=== PATIENT | female | born 1940 | race Caucasian/White ===

== ENCOUNTER 2018-01-21 10:47 | Outpatient (CLI) | payer MEDICARE, MEDICAID | END 2018-01-21 10:48 | disposition home or self-care (01) | LOC: BICMRI 10:47 | PROVIDERS: ATTEND Family Medicine | DX: R41.3 Other amnesia (principal); G93.89 Other specified disorders of brain | CPT/HCPCS: 70551 ==

== ENCOUNTER 2018-07-22 11:35 | Outpatient (CLI) | payer MEDICARE, MEDICAID ==
--- NOTE | 2018-07-22 14:12 | RAD ---
LEFT RIB SERIES: Comparison: None. History: Left rib pain. Multiple left rib fractures. FINDINGS: Multiple views of the left ribs shows no evidence of displaced left rib fracture. No pleural thickeni ng of pneumothorax are seen. IMPRESSION: No evidence of displaced left rib fracture. POS: [facility]
--- NOTE | 2018-07-22 14:15 | RAD ---
THREE VIEWS OF THE THORACIC SPINE: Comparison: None. History: Closed compression fracture of the thoracic vertebrae. Fall, causing a knot on back. FINDINGS: Three views of the thoracic spine shows normal height and alignment of vertebral bodies without fract ure or subluxation. The intervertebral discs are narrowed and small osteophytes are seen throughout t he thoracic spine. Evaluation of the upper thoracic vertebral bodies is limited secondary to overlyin g structures. IMPRESSION: No evidence of acute osseous abnormality of the thoracic spine. POS: [facility]
== END 2018-07-22 11:36 | disposition home or self-care (01) ==
LOC: BICRAD 11:35
PROVIDERS: ATTEND Family Medicine
DX: S22.42XA Multiple fractures of ribs, left side, initial encounter for closed fracture (principal); S22.000S Wedge compression fracture of unspecified thoracic vertebra, sequela
CPT/HCPCS: 72072

== ENCOUNTER 2019-06-13 10:50 | Outpatient (CLI) | payer MEDICARE, MEDICAID | END 2019-06-13 10:51 | disposition home or self-care (01) | LOC: EKG 10:50 | PROVIDERS: ATTEND Internal Medicine Hematology & Oncology | DX: Z51.11 Encounter for antineoplastic chemotherapy (principal); C92.11 Chronic myeloid leukemia, BCR/ABL-positive, in remission; D50.8 Other iron deficiency anemias; D72.829 Elevated white blood cell count, unspecified | CPT/HCPCS: 36415; 81001; 82607; 84436; 84443; 93005; 93010 ==

== ENCOUNTER 2019-08-04 09:22 | Outpatient (CLI) | payer MEDICARE, MEDICAID ==
[2019-08-04] MEDS ORDERED: Iopamidol 370 76% 100 ML VIAL ONE (09:25)
--- NOTE | 2019-08-04 11:33 | CT ---
CHEST CT WITH CONTRAST ABDOMEN CT WITH CONTRAST PELVIC CT WITH CONTRAST: HISTORY: Lymphadenopathy. Patient has been diagnosed with lymphoma. Patient has lost 5 pounds. Correlation: None. COMPARISON: None. FINDINGS: Chest CT: Mediastinum: Enlarged precarinal lymph node measuring 0.9 x 1.4 cm. Additional upper normal prevascul ar and paratracheal lymph nodes are noted. No significant subcarinal lymphadenopathy. No significant hilar lymphadenopathy. Aorta: Normal caliber. Atherosclerosis. No periaortic fat stranding. Heart: Normal heart size. No significant pericardial fluid. Coronary arteries: There is coronary calcification. Trachea and central bronchi: Patent. Pleural spaces: No pleural effusion. Right lung: Patchy groundglass opacities. Subtle 0.8 x 0.6 cm groundglass nodule upper lobe. 0.3 cm n odule in the lateral left upper lobe. 0.4 cm solid nodule in the superior segment of the right lower lobe. Left lung:Patchy groundglass opacities. No suspicious masses or nodules. Pneumothorax: None. Abdomen CT: Gallbladder: Cholelithiasis without evidence of cholecystitis. Portal vein: Patent. Liver: Appropriate enhancement. Spleen: Appropriate enhancement. Pancreas: Appropriate enhancement. Adrenal glands: Appropriate enhancement. Lymphadenopathy: No gastrohepatic, retrocrural or periportal lymphadenopathy. Kidneys: Symmetric enhancement. No obstructive uropathy. Nonobstructing calculus in the mid left vania l cortex measuring 1 to 2 mm. Exophytic cyst emanating from the mid right renal cortex measures 5.1 x 5.7 cm and has an attenuation coefficient of 14 Hounsfield units. A small cyst imaging from the low er pole of the left kidney measures 1.6 x 1.4 cm and has an attenuation coefficient of 12 Hounsfield units. Mesentery: No mass, lymphadenopathy, free air or free fluid. Alimentary canal: Limited evaluation due to the lack of oral contrast administration. No evidence of mucosal thickening or bowel obstruction. Unremarkable ileocecal junction. Normal caliber appendix. Scattered fecal material in a nondistended, nondilated colon. Diverticulosis. No evidence of divertic ulitis. Pelvis CT: Multiple mixed attenuation masses and calcifications in the uterus suggesting multifocal uterine leio myomas, incompletely evaluated. No pelvic mass, lymphadenopathy, free air or free fluid. Osseous structures: No lytic or blastic lesions. IMPRESSION: 1. Prominent precarinal lymph node. No additional mediastinal lymphadenopathy. 2. No significant lymphadenopathy in the abdomen or pelvis. 3. Bilateral renal cysts. 4. Cholelithiasis without evidence of cholecystitis. 5. Uterine leiomyoma with multiple mixed attenuation masses. Pelvic ultrasound is recommended. 6. If there is concern for lymphoma, consider PET imaging to evaluate for hypermetabolic lymph nodes. Transcribed Date/Time: 08/04/2019 11:49 AM
== END 2019-08-04 09:23 | disposition home or self-care (01) ==
LOC: CT 09:22
PROVIDERS: ATTEND Family Medicine
DX: C95.00 Acute leukemia of unspecified cell type not having achieved remission (principal); R59.0 Localized enlarged lymph nodes; N28.1 Cyst of kidney, acquired; K80.20 Calculus of gallbladder without cholecystitis without obstruction; D25.9 Leiomyoma of uterus, unspecified
CPT/HCPCS: 71260; 74177; 82565; Q9967

== ENCOUNTER 2019-08-07 14:16 | Emergency (ER) | payer MEDICARE, MEDICAID ==
[2019-08-07 15:00] LABS: Hemoglobin 12.5 g/dL (12.0-16.0); Mean Corpuscular HGB CONC 30.9 g/dL (32.0-36.0); Mean Corpuscular Hemoglobin 24.9 pg (27.0-31.0); Mean Corpuscular Volume 80.6 fL (78.0-98.0); Mean Platelet Volume 11.2 fL (7.4-10.4); Platelet Count 351 thou/uL (130-400); RBC Distribution Width 23.7 % (11.5-14.5); Red Blood Cell (RBC) Count 5.01 mill/uL (4.20-5.40); White Blood Cell (WBC) Count 22.7 thou/uL (4.8-10.8)
[2019-08-07 15:21] LABS: ALT (SGPT) 20 U/L (8-55); AST (SGOT) 24 U/L (5-34); Albumin 3.8 g/dL (3.4-4.8); Alkaline Phosphatase 144 U/L (40-110); Anion Gap 12 mmol/L (10-20); BUN (Urea Nitrogen) 17 mg/dL (9.8-20.1); CK (CPK) 33 U/L (29-168); Calc. Creatinine Clearance 0 mL/min (70-130); Calcium 8.9 mg/dL (7.8-10.44); Carbon Dioxide 29 mmol/L (23-31); Chloride 105 mmol/L (98-107); Estimated GFR-MDRD 64; Globulin 2.5 g/dL (2.4-3.5); Glucose 85 mg/dL (83-110); Potassium 3.9 mmol/L (3.5-5.1); Protein, Total 6.3 g/dL (6.0-8.3); Sodium 142 mmol/L (136-145)
[2019-08-07 15:25] LABS: Anisocytosis MODERATE=16-30 cells (100X) (0-5/hpf); Band 6 % (5-11); Burr Cells SLIGHT = 2-5 cells (100X) (0-1/hpf); Elliptocytes SLIGHT = 2-5 cells (100X) (0-1/hpf); Eosinophils 2 % (0-10); Hypochromia SLIGHT = 6-15 cells (100X) (0-5/hpf); Lymphocytes 11 % (21-51); MDiff Complete? YES; Metamyelocyte 1 % (0-0); Monocytes 2 % (0-10); Myelocyte 3 % (0-0); Neutrophil 71 % (42-75); Nucleated RBC 1 % (0); Ovalocytes SLIGHT = 2-5 cells (100X) (0-1/hpf); Platelet Morphology Comment Appears Adequate; Poikilocytosis SLIGHT = 6-15 cells (100X) (0-5/hpf); Schistocytes SLIGHT = 2-5 cells (100X) (0-1/hpf); Target Cells SLIGHT = 2-5 cells (100X) (0-1/hpf)
--- NOTE | 2019-08-07 15:25 | RAD ---
Exam: Chest one view HISTORY:Chest pain Comparison: None FINDINGS: Cardiac silhouette: Normal Aorta: Atherosclerosis Pulmonary vessels: Normal Costophrenic angles: Clear LUNGS: No masses or consolidation. Pneumothorax: None Osseous abnormalities: None IMPRESSION: No acute cardiopulmonary process. Atherosclerosis.
== END 2019-08-07 16:42 | disposition home or self-care (01) ==
LOC: ERS 14:16
DX: R07.89 Other chest pain (principal); B02.9 Zoster without complications; I48.91 Unspecified atrial fibrillation; I10 Essential (primary) hypertension; E78.5 Hyperlipidemia, unspecified; Z79.899 Other long term (current) drug therapy
CPT/HCPCS: 36415; 71045; 80053; 82550; 84484; 85025; 93005

== ENCOUNTER 2020-08-01 13:49 | Observation (INO) | payer MEDICARE, MEDICAID ==
[2020-08-01 14:43] LABS: #Eosinphils 0.5 thou/uL (0.0-0.7); #Lymphocytes 0.7 thou/uL (1.20-3.40); #Monocytes 0.7 thou/uL (0.11-0.59); #Neutrophils 6.9 thou/uL (1.40-6.50); %Eosinophils 5.4 % (0.0-10.0); %Lymphocytes 7.7 % (21.0-51.0); %Monocytes 8.3 % (0.0-10.0); %Neutrophils 78.7 % (42.0-75.0); Hemoglobin 12.1 g/dL (12.0-16.0); Mean Corpuscular HGB CONC 33.9 g/dL (32.0-36.0); Mean Corpuscular Hemoglobin 33.2 pg (27.0-31.0); Mean Corpuscular Volume 98.1 fL (78.0-98.0); RBC Distribution Width 18.9 % (11.5-14.5); Red Blood Cell (RBC) Count 3.65 mill/uL (4.20-5.40); White Blood Cell (WBC) Count 8.8 thou/uL (4.8-10.8)
[2020-08-01 14:48] LABS: INR-International Normal Ratio 1.8; Prothrombin Time 21.4 sec (12.0-14.7)
[2020-08-01 15:04] LABS: ALT (SGPT) 11 U/L (8-55); AST (SGOT) 15 U/L (5-34); Albumin 3.3 g/dL (3.4-4.8); Alkaline Phosphatase 77 U/L (40-110); Anion Gap 12 mmol/L (10-20); BUN (Urea Nitrogen) 16 mg/dL (9.8-20.1); Bilirubin, Total 1.6 mg/dL (0.2-1.2); CK (CPK) 152 U/L (29-168); Calc. Creatinine Clearance 0 mL/min (70-130); Carbon Dioxide 32 mmol/L (23-31); Chloride 95 mmol/L (98-107); Estimated GFR-MDRD 68; Globulin 2.7 g/dL (2.4-3.5); Glucose 93 mg/dL (83-110); Lipase 18 U/L (8-78); MDiff Complete? YES; Mean Platelet Volume 8.5 fL (7.4-10.4); Platelet Count 112 thou/uL (130-400); Platelet Morphology Comment Appears Decreased; Polychromasia SLIGHT = 2-3 cells (100X) (0-2/hpf); Potassium 3.1 mmol/L (3.5-5.1); Sodium 136 mmol/L (136-145)
--- NOTE | 2020-08-01 15:23 | RAD ---
RADIOGRAPH CHEST 1 VIEW: DATE: 08/01/2020 HISTORY: 79-year-old female with fever FINDINGS: There is mild cardiomegaly. There is no evidence of airspace density, pulmonary edema, or pneumothora x. IMPRESSION: 1) No acute pulmonary findings. 2) cardiomegaly without congestive heart failure.
[2020-08-01] MEDS ORDERED: Dexamethasone 10 MG/ML VIAL ONE (16:04)
[2020-08-01 16:28] LABS: Bacteria/HPF None Seen HPF (None Seen); Bilirubin Negative (Negative); Blood, Urine Trace (Negative); Clarity Clear (Clear); Glucose, Urine (Dipstick) Normal (Negative); Ketone, Urine Negative (Negative); Leukocyte Negative Leu/uL (Negative); Nitrite Negative (Negative); Protein, Urine (Dipstick) 50 mg/dL (Neg-Trace); RBC/HPF 0-3 HPF (0-3); Specific Gravity, Urine 1.022 (1.002-1.036); Urobilinogen Normal mg/dL (Less than 2)
--- NOTE | 2020-08-01 19:16 | PDOC.HHP ---
Hospitalist HPI - History of Present Illness Generalized rash History of Present Illness: This is an 79-year-old female with a history of dementia, CVA, parkinsonism, A. 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 At the time of my evaluation patient was in the room with her daughter who gave most of the story as the patient is a poor historian and has poor short-term memory. Her daughter notes that she fell 3 days ago at home bruising her face. She stopped taking Coumadin since. This was hit fourth fall in the year. She was sent to the ED for evaluation and was noted that she had a bad UTI. She was prescribed Macrobid and discharged home. The day after she started taking Macrobid her daughter noticed generalized rash which got worse until a day ago she went back to the ED. This time she was given 1 dose of Rocephin and discharged on ciprofloxacin. Overnight however she started spiking fevers with worsening rash and her daughter was concerned she may have sepsis from the urinary tract infection. The rash was not pruritic or painful. She brought her in this afternoon for further evaluation. Besides recent antibiotics she has not had a change in any of her medications for at least over a year. At presentation her blood pressure was 124/64, pulse 84, respiratory 22, temperature 98.6, saturation 100% on room air. CBC showed a mild thrombocytopenia at 112, potassium 3.1 bicarb 32, troponin 0 0.014 and TSH was 0.267. Chest x-ray showed no acute pulmonary findings however cardiomegaly without heart failure was noted. She was started on dexamethasone 10 mg IV. Hospitalist team was consulted for admission n Hospitalist ROS - Review of Systems Constitutional: reports: fever. denies: chills, sweats, weakness Respiratory: denies: cough, shortness of breath, hemoptysis, SOB with excertion Cardiovascular: denies: chest pain, palpitations, orthopnea, paroxysmal noc. dyspnea Gastrointestinal: denies: nausea, vomiting, abdominal pain, diarrhea Genitourinary: reports: incontinence. denies: dysuria, frequency, hematuria Skin: reports: rash Neurological: denies: weakness, numbness Other: Tremors Hospitalist History - Past Medical History Cardiac: reports: AFIB - Exam General Appearance: awake alert Eye: PERRL, anicteric sclera ENT - other findings: Periorbital bruising Neck: supple, no thyromegaly, no lymphadenopathy Heart: no murmur, no gallops, normal peripheral pulses, irregular Respiratory: no wheezes, no rales, no ronchi, normal chest expansion Gastrointestinal: soft, non-tender, non-distended, normal bowel sounds Extremities: no cyanosis, no clubbing, no edema Skin - other findings: Generalized morbilliform rash stasis dermatitis of lower limbs Hospitalist Results - Labs Result Diagrams: 08/01/20 14:30 08/01/20 14:30 Lab results: WBC 8.8 thou/uL (4.8-10.8) 08/01/20 14:30 Hgb 12.1 g/dL (12.0-16.0) 08/01/20 14:30 Hct 35.8 % (36.0-47.0) L 08/01/20 14:30 MCV 98.1 fL (78.0-98.0) H 08/01/20 14:30 Plt Count 112 thou/uL (130-400) L 08/01/20 14:30 Neutrophils % 78.7 % (42.0-75.0) H 08/01/20 14:30 Sodium 136 mmol/L (136-145) 08/01/20 14:30 Potassium 3.1 mmol/L (3.5-5.1) L 08/01/20 14:30 Chloride 95 mmol/L (98-107) L 08/01/20 14:30 Carbon Dioxide 32 mmol/L (23-31) H 08/01/20 14:30 BUN 16 mg/dL (9.8-20.1) 08/01/20 14:30 Creatinine 0.81 mg/dL (0.6-1.1) 08/01/20 14:30 Glucose 93 mg/dL (83-110) 08/01/20 14:30 Lactic Acid 1.4 mmol/L (0.5-2.2) 08/01/20 14:30 Calcium 8.0 mg/dL (7.8-10.44) 08/01/20 14:30 Total Bilirubin 1.6 mg/dL (0.2-1.2) H 08/01/20 14:30 AST 15 U/L (5-34) 08/01/20 14:30 ALT 11 U/L (8-55) 08/01/20 14:30 Alkaline Phosphatase 77 U/L (40-110) 08/01/20 14:30 Creatine Kinase 152 U/L (29-168) 08/01/20 14:30 Troponin I 0.014 ng/mL (< 0.028) 08/01/20 14:30 Serum Total Protein 6.0 g/dL (6.0-8.3) 08/01/20 14:30 Albumin 3.3 g/dL (3.4-4.8) L 08/01/20 14:30 Lipase 18 U/L (8-78) 08/01/20 14:30 Urine Ketones Negative mg/dL (Negative) 08/01/20 15:42 Urine Blood Trace (Negative) A 08/01/20 15:42 Urine Nitrite Negative (Negative) 08/01/20 15:42 Ur Leukocyte Esterase Negative Peter/uL (Negative) 08/01/20 15:42 Urine RBC 0-3 HPF (0-3) 08/01/20 15:42 Urine WBC 4-6 HPF (0-3) A 08/01/20 15:42 Ur Squamous Epith Cells 4-6 HPF (0-3) A 08/01/20 15:42 Urine Bacteria None Seen HPF (None Seen) 08/01/20 15:42 Hospitalist H&P A/P - Plan Plan: This is an 79-year-old female patient with a history of A. fib, dementia, CML w ho presents with generalized body rash and intermittent fevers after she started taking antibiotics for UTI. Drug skin reaction This likely drug reaction likely from Macrobid Also continue interaction with TKI Received Decadron Continue Decadron for another day Close observation. Urinary tract infection She is already had about 3 days of antibiotics UA today is pretty sterile We will continue treatment with ceftriaxone to complete 5-day Fevers She has been having intermittent fevers possibly due to the drug reaction Chest x-ray is pretty clear Urinalysis is bland Blood cultures were drawn in the EDwe will follow to rule out any possible infection. Recurrent falls Likely due to instability from parkinsonism Fall precautions PT Hypokalemia Replaced Follow BMP and magnesium Hyperthyroidism Possible TKI induced thyroid dysfunction TSH was 0.267 Check free T4 Consider oncology evaluation in a.m. Thrombocytopenia This is mild We will monitor A. fib No anticoagulation at the moment Not in RVR Start home meds once verified Monitor on telemetry Hypertension BP controlled Verify home medications and restart. CML Continue TKI Consider oncology consult in a.m Possible TKI skin toxicity Dementia Continue memantine Stasis dermatitiscon CODE STATUSfull code VT prophylaxisLovenox
[2020-08-01] MEDS ORDERED: Potassium Chloride 20 MEQ TAB PO SCH (20:30)
[2020-08-01] MEDS ORDERED: Electrolyte Replacement Protoc 1 EACH EACH FS SCH (21:15)
[2020-08-01] MEDS ORDERED: cefTRIAXone\\ROCEPHIN 1 GM in Sodium Chloride 0.9% 100 ML IVPB SCH (22:00)
--- NOTE | 2020-08-01 22:57 | PDOC.FMACP ---
Advance Care Planning - Note Summary: Advanced Care Planning was discussed. The diagnosis, prognosis and goals of care were discussed. Patient's daughter is surrogate decision-maker. CODE STATUS full code
[2020-08-01 23:41] VITALS: BMI 26.6
[2020-08-02 04:38] LABS: #Lymphocytes 0.4 thou/uL (1.20-3.40); #Monocytes 0.1 thou/uL (0.11-0.59); #Neutrophils 4.3 thou/uL (1.40-6.50); %Basophils 0.3 % (0.0-1.0); %Eosinophils 0.1 % (0.0-10.0); %Lymphocytes 8.8 % (21.0-51.0); %Monocytes 1.7 % (0.0-10.0); %Neutrophils 89.1 % (42.0-75.0); Hemoglobin 11.3 g/dL (12.0-16.0); Mean Corpuscular HGB CONC 32.7 g/dL (32.0-36.0); Mean Corpuscular Hemoglobin 32.4 pg (27.0-31.0); Mean Platelet Volume 8.9 fL (7.4-10.4); Platelet Count 108 thou/uL (130-400); RBC Distribution Width 18.8 % (11.5-14.5); Red Blood Cell (RBC) Count 3.48 mill/uL (4.20-5.40); White Blood Cell (WBC) Count 4.9 thou/uL (4.8-10.8)
[2020-08-02 04:48] LABS: Anion Gap 13 mmol/L (10-20); BUN (Urea Nitrogen) 14 mg/dL (9.8-20.1); Calc. Creatinine Clearance 77 mL/min (70-130); Calcium 7.7 mg/dL (7.8-10.44); Carbon Dioxide 26 mmol/L (23-31); Chloride 101 mmol/L (98-107); Estimated GFR-MDRD 83; Glucose 135 mg/dL (83-110); Magnesium 1.8 mg/dL (1.6-2.6); Potassium 3.4 mmol/L (3.5-5.1); Sodium 137 mmol/L (136-145)
[2020-08-02] MEDS ORDERED: Magnesium 2 GM/50 ML 2 GM in Premix Bag 1 BAG IVPB SCH (06:45)
[2020-08-02] MEDS ORDERED: Potassium Chloride 20 MEQ in Premix Bag 1 BAG IVPB SCH (07:00)
--- NOTE | 2020-08-02 08:40 | PDOC.HOSPP ---
- Subjective Encounter Date: 08/02/20 Encounter Time: 11:30 Subjective: Patient without specific complaint. Very bruised up from fall a week ago. No fever overnight. - Objective Vital Signs & Weight: Vital Signs (12 hours) Temp Pulse Resp BP BP Pulse Ox 08/02/20 03:29 98.9 F 86 15 105/56 L 95 08/01/20 22:30 98.4 F 93 20 145/71 H 94 L Weight Weight 165 lb 3.2 oz Result Diagrams: 08/02/20 03:54 08/02/20 03:54 Hospitalist ROS - Review of Systems Constitutional: denies: fever, chills Respiratory: denies: cough, shortness of breath Cardiovascular: denies: chest pain, palpitations Gastrointestinal: denies: nausea, vomiting, abdominal pain Genitourinary: denies: dysuria, hematuria - Medication Medications: Active Medications Generic Name Dose Route Start Last Admin Trade Name Freq PRN Reason Stop Dose Admin Ceftriaxone Sodium 1 gm/ 100 mls @ 200 mls/hr 08/01/20 22:00 08/01/20 23:12 Sodium Chloride IVPB 100 mls 2200 PRECIOUS Administration - Exam General Appearance: NAD, awake alert ENT: moist mucosa ENT - other findings: old bruising to face and forehead Heart: RRR, no murmur, no gallops, no rubs Respiratory: CTAB, no wheezes, no rales, no ronchi Gastrointestinal: soft, non-tender, non-distended, normal bowel sounds Psychiatric: normal affect, normal behavior Hosp A/P (1) Fever Code(s): R50.9 - FEVER, UNSPECIFIED Status: Resolved (2) Drug reaction Code(s): T50.905A - ADVERSE EFFECT OF UNSP DRUG/MEDS/BIOL SUBST, INIT Status: Acute Plan: likely to Macrobid (3) UTI (urinary tract infection) Status: Acute (4) Parkinsons disease Code(s): G20 - PARKINSON'S DISEASE Status: Chronic (5) Dementia Code(s): F03.90 - UNSPECIFIED DEMENTIA WITHOUT BEHAVIORAL DISTURBANCE Status: Chronic (6) History of CVA (cerebrovascular accident) Code(s): Z86.73 - PRSNL HX OF TIA (TIA), AND CEREB INFRC W/O RESID DEFICITS Status: Chronic (7) Afib Code(s): I48.91 - UNSPECIFIED ATRIAL FIBRILLATION Status: Chronic - Plan Patient without fever overnight. WBC normal. Urinalysis clearing well. Transition to Omnicef on discharge. PT evaluated patient, clear to go home with HH PT/OT. Onc consult for possible drug reaction with reported petichiae. Rash appears more maculopapular to me. Spoke with Sara Tripp and she said that the rash is not likely the Gleevec and patient should resume that med. Most likely the antibiotic. Will give short course of steroids. I spoke with the daughter at bedside and explained diagnosis and plan. Has f/u with Dr. Williamson later this month. Can call their office if the rash worsens. Will d/c today.
[2020-08-02] MEDS ORDERED: Enoxaparin Sodium 40 MG/0.4 ML SYRINGE SC SCH ×2 (09:00)
[2020-08-02] MEDS ORDERED: FLU VACC QS2020-21(65YR UP)/PF 240 MCG/0.7 ML SYRINGE IM ONE (09:00)
[2020-08-02] MEDS ORDERED: Dexamethasone 5 MG in Sodium Chloride 0.9% 50 ML IVPB SCH (09:00)
[2020-08-02] MEDS ORDERED: Dexamethasone 10 MG in Sodium Chloride 0.9% 50 ML IVPB SCH (09:00)
[2020-08-02 12:34] LABS: SARS-CoV-2 MS2 Positive; SARS-CoV-2 N Gene Negative; SARS-CoV-2 S Gene Negative; SARS-CoV-2 by NAA Not Detected (NotDetected); SARS-CoV-2 orf1ab Negative
[2020-08-02] MEDS ORDERED: Potassium Chloride 20 MEQ in Sodium Chloride 0.9% 250 ML 250 ML IVPB SCH (13:00)
[2020-08-02] MEDS ORDERED: Potassium Chloride 20 MEQ TAB PO SCH (13:45)
[2020-08-02 14:06] VITALS: BP 135/78; TEMP 98.5
--- NOTE | 2020-08-02 22:02 | DIS ---
DATE OF ADMISSION: 08/01/2020 DATE OF DISCHARGE: 08/02/2020 PRIMARY CARE PHYSICIAN: Dr. Molina. PRIMARY ONCOLOGIST: Dr. Williamson. REASON FOR ADMISSION: Fever and rash. DIAGNOSES AT DISCHARGE: 1. Fever, resolved. 2. Drug reaction to Macrobid. 3. Urinary tract infection, improved. 4. Parkinson disease. 5. Dementia. 6. History of cerebrovascular accident. 7. Atrial fibrillation. PROCEDURES: None. CONSULTATIONS: Oncology, Sara Tripp for Dr. Williamson. SUMMARY OF HOSPITAL COURSE: This is an 79-year-old female with a history of dementia, previous stroke, Parkinson's, on Coumadin for paroxysmal atrial fibrillation. She had a fall about 4 to 5 days ago, went into the emergency room, was diagnosed with urinary tract infection, was started on Macrobid. The patient a couple of days later was noted to have fever up to 102 to 103 and noted to have a rash developing on her body. She was seen in the ER again, was given Rocephin and then switched to Cipro and taken off the Macrobid due to a possible drug reaction. The next day, patient had a fever again and came back into the emergency room. At this time, she was noted to be afebrile in the emergency room and was put in observation in the hospital, and has been afebrile overnight. Her urine looked much better. No culture had been done initially. She was continued on Rocephin in the hospital at this time. She is on Gleevec for CML. We did consult Oncology to see if possibly the drug reaction was due to her Gleevec. I spoke with Sara Tripp. She stated that the Gleevec is unlikely to be causing the skin reaction, it is most likely the antibiotic that started right before the rash started. She did recommend restarting the Gleevec and following up with Oncology office as scheduled later this month. The patient ambulated well with physical therapy and on the day of discharge, had no more fevers and is being discharged home. DISCHARGE MANAGEMENT: DISPOSITION: Discharged home with Home Health. ACTIVITY: As tolerated. DIET: Healthy heart, low-sodium diet. THERAPY: Occupational and Physical Therapy. FOLLOWUP: Follow up with Dr. Molina in [address] Williamson as scheduled for August 16. She can call Dr. Williamson's office should the rash worsen off the Macrobid and on a short steroid course and they can into the office sooner. DISCHARGE MEDICATIONS: 1. Aspirin 81 mg daily, 30 tablets dispensed. 2. Cefdinir 300 mg twice a day, 10 caps dispensed. 3. Prednisone 20 mg tablets, two tablets daily for 5 more days, 10 tabs dispensed. 4. Atorvastatin 40 mg daily. 5. Amlodipine 5 mg daily. 6. Bisoprolol/hydrochlorothiazide 10/6.25 mg daily. 7. Lexapro 10 mg daily. 8. Furosemide 40 mg daily. 9. Gleevec 100 mg daily. 10. Namenda 5 mg daily. 11. Metoprolol succinate 25 mg daily. 12. Potassium chloride 10 mEq daily. The patient is to stop her Coumadin due to falls and will just be on aspirin for stroke prophylaxis and she is also to stop the Macrobid. Job ID: [id number]
[2020-08-03] MEDS ORDERED: Amlodipine 5 MG TAB PO SCH (09:00)
[2020-08-03] MEDS ORDERED: Bisoprolol Fumarate/HCTZ 10 mg/6.25 mg Tablet PO SCH (09:00)
[2020-08-03] MEDS ORDERED: Escitalopram Oxalate 10 mg Tablet PO SCH (09:00)
[2020-08-03] MEDS ORDERED: Atorvastatin Calcium 40 MG TAB PO SCH (09:00)
[2020-08-03] MEDS ORDERED: Potassium Chloride 10 MEQ TAB PO SCH (09:00)
[2020-08-03] MEDS ORDERED: Furosemide 40 MG TAB PO SCH (09:00)
== END 2020-08-02 16:15 | disposition home health service (06) ==
LOC: ERS 13:49 → ERHOLD 17:04 → 2NO 22:40
PROVIDERS: ADMIT Student in an Organized Health Care Education/Training Program; ATTEND Emergency Medicine
DX: L27.0 Generalized skin eruption due to drugs and medicaments taken internally (principal); R50.2 Drug induced fever; T37.8X5A Adverse effect of other specified systemic anti-infectives and antiparasitics, initial encounter; N39.0 Urinary tract infection, site not specified; G20 Parkinson's disease; F03.90 Unspecified dementia, unspecified severity, without behavioral disturbance, psychotic disturbance, mood disturbance, and anxiety; I48.0 Paroxysmal atrial fibrillation; E87.6 Hypokalemia; E05.90 Thyrotoxicosis, unspecified without thyrotoxic crisis or storm; D69.6 Thrombocytopenia, unspecified; I10 Essential (primary) hypertension; C92.10 Chronic myeloid leukemia, BCR/ABL-positive, not having achieved remission; Z86.73 Personal history of transient ischemic attack (TIA), and cerebral infarction without residual deficits; Z79.01 Long term (current) use of anticoagulants; Z79.2 Long term (current) use of antibiotics; Z79.899 Other long term (current) drug therapy; Z88.1 Allergy status to other antibiotic agents; Z20.828 Contact with and (suspected) exposure to other viral communicable diseases
CPT/HCPCS: 71045; 80048; 81003; 82550; 83605; 83690; 83735; 84439; 84484; 85025; 85610; 87040; 93005; 96372; 96374; 96375 ×2; 96376; 97116; 97139; 99285; G0378 ×3; U0003; 36415; 80053; 84443; 87635; J0696; J1100; J1650; J3475; J3480; J3490

== ENCOUNTER 2021-08-02 11:09 | Outpatient (CLI) | payer MEDICARE, MEDICAID | END 2021-08-02 11:10 | disposition home or self-care (01) | LOC: PET 11:09 | PROVIDERS: ATTEND Nurse Practitioner Acute Care | DX: R41.3 Other amnesia (principal) | CPT/HCPCS: 78803; A9552 ==

== ENCOUNTER 2023-11-09 14:56 | Outpatient (CLI) | payer MEDICARE | END 2023-11-09 14:57 | disposition home or self-care (01) | LOC: CT 14:56 | PROVIDERS: ATTEND Nurse Practitioner Family | DX: M48.54XA Collapsed vertebra, not elsewhere classified, thoracic region, initial encounter for fracture (principal); S32.000A Wedge compression fracture of unspecified lumbar vertebra, initial encounter for closed fracture; M54.6 Pain in thoracic spine | CPT/HCPCS: 72128; 72131 ==